=== PATIENT | female | born 1960 | race Caucasian/White ===

== ENCOUNTER 2016-04-09 02:03 | Emergency (ER) | payer MEDICARE ==
[2016-04-09 02:34] VITALS: TEMP 98.3; BMI 25.8
--- NOTE | 2016-04-09 03:30 | DIRPT ---
CLINICAL DATA: Caught boot heel on threshold of door, falling onto outstretched left hand, with pain and swelling at the wrist. Initial encounter. EXAM: LEFT WRIST - COMPLETE 3+ VIEW COMPARISON: None. FINDINGS: There is a comminuted fracture involving the distal radial metaphysis, with mild dorsal displacement and dorsal tilt, and extension to the radiocarpal joint. A mildly displaced ulnar styloid fracture is also seen. There appears to be mild underlying widening of the scapholunate interval, measuring 3-4 mm, concerning for injury to the scapholunate ligament. Soft tissue swelling is noted about the wrist. IMPRESSION: 1. Comminuted fracture involving the distal radial metaphysis, with mild dorsal displacement and dorsal tilt, extending to the radiocarpal joint. Mildly displaced ulnar styloid fracture also seen. 2. Apparent mild underlying widening of the scapholunate interval, measuring 3-4 mm, concerning for injury to the scapholunate ligament. Electronically Signed By: Gildardo Macias M.D. On: 04/09/2016 03:27
[2016-04-09] MEDS ORDERED: OXYCODONE HCL 5 MG TABLET PO ONE (04:21)
--- NOTE | 2016-04-09 04:24 | EDPRACDOC ---
- General Information Chief Complaint: Wrist Pain Stated Complaint: FALL: WRIST PAIN Time Seen by Provider: 04/09/16 04:17 Information Source: Patient Home Medications: Home Medications Oxycodone HCl/Acetaminophen [Percocet 5-325 mg Tablet] 1 tab PO Q6H PRN #20 tab 04/09/16 Allergies/Adverse Reactions: Allergies Allergy/AdvReac Type Severity Reaction Status Date / Time Penicillins Allergy Hives* Verified 04/09/16 02:34 shrimp Allergy Nausea/Vomi Verified 04/09/16 02:34 ting - History of Present Illness Onset: 1 HOUR HPI: Pt states she tripped on the threshold and fell. C/o l wrist pain. L hand dominate. Denies numbness, LOC, vision changes, n/v, neck or back pain. Location: Reports: Dorsal, Volar, Ulnar, Radial Dominant Side: Reports: Left Mechanism: Reports: FOOSH Circumstances: Reports: Fall Pain Severity: Reports: Mild, Moderate Associated Signs and Symptoms: Reports: Forearm Pain ED Past Medical History - History Reviewed Yes Nurses notes reviewed and agree except as marked - Patient Medical History Psychological History: Denies: Depression - Social Medical History Smoking Status: Current some day smoker ETOH: Social Substance Abuse: None EDM Review of Systems - Review of Systems Constitutional: No Symptoms Reported. negative: Fever, Chills, Weakness, Fatigue, Loss of Appetite Eyes: No Symptoms Reported. negative: Redness, Blurred Vision, Double Vision, Discharge, Pain, Light Sensitive, Photophobia Respiratory: No Symptoms Reported. negative: Cough, Brassy Cough, Barky Cough, Shortness of Breath, Wheezing, Hemoptysis Cardiovascular: No Symptoms Reported. negative: Chest Pain, Palpitations, Syncope, Edema, Orthopnea, PND, Skin Mottling, Cyanosis Gastrointestinal: No Symptoms Reported. negative: Pain, Constipation, Nausea, Vomiting, Diarrhea, Melena, Formula Intolerance Neurological: No Symptoms Reported. negative: Headache, Dizziness, Seizure, Numbness, Weakness, Speech Difficulty, Gait Difficulty Musculoskeletal: Forearm, Wrist Integumentary: Bruising Allergic/Immunologic: No Symptoms Reported. negative: Hives, Itching Hematologic: No Symptoms Reported. negative: Lymphadenopathy, Easy Bruising, Easy Bleeding Psychiatric: No Symptoms Reported. negative: Anxiety, Depression, Hallucinations, Insomnia, Suicidal - Physical Exam Constitutional: Alert Oriented to: Time, Person, Place Last recorded Vital Signs: Last Vital Signs Temp 98.3 F 04/09/16 02:29 Pulse 74 04/09/16 02:29 Resp 20 04/09/16 02:29 BP 138/73 04/09/16 02:29 Pulse Ox 99 04/09/16 02:29 Oxygen Pulse Oxygen Saturation 99 O2 Device Room Air Oxygen Flow Rate Fraction of Inspired Oxygen ( FIO2) - HEENT Head: Normal ( normocephalic) Eye Exam: Normal (PERRL, EOMI, Sclera white) - Respiratory/Cardiovascular Respiratory: Normal - CTA (BBS clear to auscultation without adventitious sounds ) Cardiovascular: Normal (RRR without murmur, gallop or rub) - Musculoskeletal Back: Normal (Non-Tender) Extremities: Normal (Normal tone, Pulses 2+ No cyanosis or edema, FROM) - Integumentary Skin: Normal, Warm, Dry Lymphatics: Normal (no adenopathy) - Neurologic Memory Impaired: Normal Motor Function: Normal (Normal tone, Pulses 2+ No cyanosis or edema, FROM) Mood Description: Normal Perception: Normal ED Wrist Problem Exam Wrist Symptoms: Swelling, Limited ROM, Moderate Tenderness Hand Symptoms: Normal Forearm Symptoms: Swelling, Moderate Tenderness Distal Function/Circulation: Normal - Integumentary Skin: Ecchymosis Lymphatics: Normal ED Procedures - Splinting 1st splint Location: L wrist Hand-Made Type: orthoglass Splint: sugar-tong Pre-Proc Neuro Vasc Exam: normal Post-Proc Neuro Vasc Exam: normal Other Devices: Sling ED Wrist Problem MDM - Differential Diagnosis Differential Diagnosis: Fracture-Radius/Ulna, Sprain - Diagnostic Imaging Wrist Image interpreted by: Radiologist Diagnostic Imaging Comments: IMPRESSION: 1. Comminuted fracture involving the distal radial metaphysis, with mild dorsal displacement and dorsal tilt, extending to the radiocarpal joint. Mildly displaced ulnar styloid fracture also seen. 2. Apparent mild underlying widening of the scapholunate interval, measuring 3-4 mm, concerning for injury to the scapholunate ligament. Decision Time to Discharge: 05:01 - Departure Disposition: Home Condition: Good Final Diagnosis: Closed fracture of left wrist Qualifiers: Encounter type: initial encounter Qualified Code(s): S62.102A - Fracture of unspecified carpal bone, left wrist, initial encounter for closed fracture Instructions: Wrist Fracture in Adults (ED), RICE: Routine Care for Injuries Education/Counseling Given To: Patient Education/Counseling Given Regarding: Diagnosis, Treatment, Follow Up Referrals: None,No Provider [Primary Care Provider] - One Week Booker Paez DO [Staff Physician] - One Week Prescriptions: Oxycodone HCl/Acetaminophen [Percocet 5-325 mg Tablet] 1 tab PO Q6H PRN #20 tab PRN Reason: Pain Additional Instructions: Elevate affected area as much as possible, apply cold compresses 20 mins at a time as needed for pain or swelling, wear splint until you follow up with orthopedics.
[2016-04-09 05:20] VITALS: BP 130/70; PULSE 76
--- NOTE | 2016-04-09 05:45 | DIRPT ---
CLINICAL DATA: Status post fall, with pain and swelling at the left wrist and forearm. Initial encounter. EXAM: LEFT ELBOW - COMPLETE 3+ VIEW COMPARISON: None. FINDINGS: There is no evidence of fracture or dislocation. The visualized joint spaces are preserved. No significant joint effusion is identified. The soft tissues are unremarkable in appearance. IMPRESSION: No evidence of fracture or dislocation. Electronically Signed By: Gildardo Macias M.D. On: 04/09/2016 05:43
--- NOTE | 2016-04-09 05:45 | DIRPT ---
CLINICAL DATA: Status post fall onto outstretched hand, with pain and swelling about the left forearm and wrist. Initial encounter. EXAM: LEFT FOREARM - 2 VIEW COMPARISON: None. FINDINGS: A comminuted fracture of the distal radial metaphysis is again noted, without significant displacement or angulation. No additional fractures are seen. The elbow joint is grossly unremarkable. The carpal rows are grossly unremarkable in appearance, though incompletely imaged. No definite soft tissue abnormalities are characterized on radiograph. IMPRESSION: Comminuted fracture of the distal radial metaphysis, without significant displacement or angulation. No additional fracture seen. Electronically Signed By: Gildardo Macias M.D. On: 04/09/2016 05:42
== END 2016-04-09 05:19 | disposition home or self-care (01) ==
LOC: ED 02:03
DX: S62.102A Fracture of unspecified carpal bone, left wrist, initial encounter for closed fracture (principal); F17.200 Nicotine dependence, unspecified, uncomplicated; W01.0XXA Fall on same level from slipping, tripping and stumbling without subsequent striking against object, initial encounter
CPT/HCPCS: 29125; 73080; 73090; 73110; 99283; A9270; J3490